=== PATIENT | male | born 1970 | race Caucasian/White ===

== ENCOUNTER 2016-10-22 03:36 | Emergency (ER) | payer SELFPAY ==
[~2016-10-22] VITALS: Ht 190.5 cm; Wt 92.7 kg
[2016-10-22 03:37] VITALS: BP 143/83
== END 2016-10-22 05:09 | disposition home or self-care (01) ==
LOC: ED 05:03
DX: S60.221A Contusion of right hand, initial encounter (principal); I10 Essential (primary) hypertension; F17.200 Nicotine dependence, unspecified, uncomplicated; W20.8XXA Other cause of strike by thrown, projected or falling object, initial encounter; Y93.89 Activity, other specified; Y92.89 Other specified places as the place of occurrence of the external cause; Y99.8 Other external cause status
CPT/HCPCS: 99284

== ENCOUNTER 2017-09-30 14:59 | Inpatient (IN) | payer MEDICAID ==
[~2017-09-30] VITALS: Ht 190.5 cm; Wt 80.9 kg
[2017-09-30 17:27] LABS: BASOPHILS # (AUTO) 0.01 x10^3/uL (0-0.1); BASOPHILS % (AUTO) 0 % (0-1); EOSINOPHILS # (AUTO) 0.06 x10^3/uL (0-0.4); EOSINOPHILS % (AUTO) 1 % (1-7); LYMPHOCYTES # (AUTO) 1.76 x10^3/uL (1-3.4); LYMPHOCYTES % (AUTO) 25 % (22-44); MD NO; MEAN CORPUSCULAR HEMOGLOBIN 30.5 pg (27.5-34.5); MEAN CORPUSCULAR HGB CONC 33.7 g/dL (33.2-36.2); MEAN CORPUSCULAR VOLUME 90.4 fL (81-97); MEAN PLATELET VOLUME 10.4 fL (7.4-10.4); MONOCYTES # (AUTO) 0.78 x10^3/uL (0.2-0.8); MONOCYTES % (AUTO) 11 % (2-9); NEUTROPHILS # (AUTO) 4.44 x10^3/uL (1.8-6.8); NEUTROPHILS % (AUTO) 63 % (42-75); PLATELET COUNT 190 x10^3/uL (130-400); RED BLOOD COUNT 4.19 x10^6/uL (4.38-5.82); RED CELL DISTRIBUTION WIDTH 13.3 % (9.4-14.8)
[2017-09-30 17:36] LABS: ANION GAP 8 mmol/L (5-15); CALCIUM 8.9 mg/dL (8.5-10.1); CHLORIDE 111 mmol/L (98-107); CREATININE 0.77 mg/dL (0.7-1.3)
[2017-09-30 17:52] LABS: INTERNATIONAL NORMALIZED RATIO 1.03 (0.93-1.1); PROTHROMBIN TIME 10.6 Seconds (9.6-11.5)
[2017-09-30] MEDS ORDERED: FAMO40OR2 PO (19:20)
[2017-09-30] MEDS ORDERED: ACETAMINOPHEN 325 MG TABLET PO PRN (20:00)
[2017-09-30] MEDS ORDERED: ONDANSETRON ODT 4 MG PO PRN (20:00)
[2017-09-30] MEDS ORDERED: HEPARIN 5,000 UNITS/ML, 1ML IV ONE (20:30)
[2017-09-30 21:00] VITALS: BP 104/66
[2017-09-30] MEDS: SODIUM CHLORIDE 0.9% 1,000 ML IV SCH (23:14)
[2017-09-30] MEDS: HEPARIN 25,000 UNITS/500ML PMX 500 ML IV PRN (23:44)
[2017-10-01 00:40] VITALS: BP 96/58
[2017-10-01 02:20] VITALS: BP 102/66
[2017-10-01] MEDS: SODIUM CHLORIDE 0.9% 1,000 ML IV SCH ×3 (03:48→20:54)
[2017-10-01 05:39] LABS: BASOPHILS # (AUTO) 0.03 x10^3/uL (0-0.1); BASOPHILS % (AUTO) 1 % (0-1); EOSINOPHILS # (AUTO) 0.19 x10^3/uL (0-0.4); EOSINOPHILS % (AUTO) 3 % (1-7); LYMPHOCYTES # (AUTO) 2.23 x10^3/uL (1-3.4); LYMPHOCYTES % (AUTO) 36 % (22-44); MD NO; MEAN CORPUSCULAR HEMOGLOBIN 30.7 pg (27.5-34.5); MEAN CORPUSCULAR HGB CONC 33.7 g/dL (33.2-36.2); MEAN CORPUSCULAR VOLUME 91.2 fL (81-97); MEAN PLATELET VOLUME 10.4 fL (7.4-10.4); MONOCYTES # (AUTO) 0.67 x10^3/uL (0.2-0.8); MONOCYTES % (AUTO) 11 % (2-9); NEUTROPHILS # (AUTO) 3.01 x10^3/uL (1.8-6.8); NEUTROPHILS % (AUTO) 49 % (42-75); PLATELET COUNT 195 x10^3/uL (130-400); RED CELL DISTRIBUTION WIDTH 13.2 % (9.4-14.8)
[2017-10-01 05:55] LABS: CHLORIDE 108 mmol/L (98-107)
[2017-10-01 06:18] LABS: ALANINE AMINOTRANSFERASE 38 U/L (12-78); ALBUMIN 2.9 g/dL (3.4-5.0); ALKALINE PHOSPHATASE 72 U/L (45-117); ANION GAP 8 mmol/L (5-15); BILIRUBIN,TOTAL 0.4 mg/dL (0.2-1.0); CALCIUM 8.3 mg/dL (8.5-10.1); CREATININE 0.72 mg/dL (0.7-1.3); TOTAL PROTEIN 5.8 g/dL (6.4-8.2)
[2017-10-01] MEDS: HEPARIN 5,000 UNITS/ML, 1ML IV PRN ×3 (06:26→18:38)
[2017-10-01 07:54] VITALS: BP 91/58
[2017-10-01] MEDS: PANTOPROZOLE 40MG TABLET PO SCH (08:52)
[2017-10-01 11:51] LABS: INTERNATIONAL NORMALIZED RATIO 0.98 (0.93-1.1); PROTHROMBIN TIME 10.1 Seconds (9.6-11.5)
[2017-10-01] MEDS: WARFARIN HIGH DOSE PROTOCOL XX SCH (12:00)
[2017-10-01 15:18] VITALS: BP 102/64
[2017-10-01] MEDS ORDERED: WARFARIN 10 MG TABLET PO-COUM ONE (18:00)
[2017-10-01] MEDS: HEPARIN 25,000 UNITS/500ML PMX 500 ML IV PRN (21:35)
[2017-10-01 21:47] VITALS: BP 101/64
[2017-10-02] MEDS: HEPARIN 5,000 UNITS/ML, 1ML IV PRN ×2 (01:06→13:28)
[2017-10-02 02:21] VITALS: BP 87/53
[2017-10-02 03:08] VITALS: BP 94/59
[2017-10-02] MEDS: SODIUM CHLORIDE 0.9% 1,000 ML IV SCH ×3 (03:48→19:48)
[2017-10-02 06:54] VITALS: BP 104/68
[2017-10-02 07:09] LABS: INTERNATIONAL NORMALIZED RATIO 1.06 (0.93-1.1); PROTHROMBIN TIME 10.9 Seconds (9.6-11.5)
[2017-10-02] MEDS: PANTOPROZOLE 40MG TABLET PO SCH (07:11)
[2017-10-02] MEDS ORDERED: KETOROLAC 30 MG/1 ML IM PRN (09:00)
[2017-10-02] MEDS: WARFARIN HIGH DOSE PROTOCOL XX SCH (11:41)
[2017-10-02] MEDS: HEPARIN 25,000 UNITS/500ML PMX 500 ML IV PRN (14:01)
[2017-10-02 14:47] VITALS: BP 96/67
[2017-10-02] MEDS ORDERED: WARFARIN 7.5 MG TABLET PO-COUM SCH (18:00)
[2017-10-02 19:45] VITALS: BP 98/61
[2017-10-03 01:27] LABS: BASOPHILS # (AUTO) 0.03 x10^3/uL (0-0.1); BASOPHILS % (AUTO) 1 % (0-1); EOSINOPHILS # (AUTO) 0.22 x10^3/uL (0-0.4); EOSINOPHILS % (AUTO) 4 % (1-7); LYMPHOCYTES % (AUTO) 42 % (22-44); MD NO; MEAN CORPUSCULAR HEMOGLOBIN 30.5 pg (27.5-34.5); MEAN CORPUSCULAR HGB CONC 33.7 g/dL (33.2-36.2); MEAN CORPUSCULAR VOLUME 90.5 fL (81-97); MEAN PLATELET VOLUME 10.4 fL (7.4-10.4); MONOCYTES # (AUTO) 0.48 x10^3/uL (0.2-0.8); MONOCYTES % (AUTO) 9 % (2-9); NEUTROPHILS # (AUTO) 2.47 x10^3/uL (1.8-6.8); NEUTROPHILS % (AUTO) 45 % (42-75); PLATELET COUNT 201 x10^3/uL (130-400); RED BLOOD COUNT 4.29 x10^6/uL (4.38-5.82); RED CELL DISTRIBUTION WIDTH 13.2 % (9.4-14.8)
[2017-10-03 01:30] LABS: INTERNATIONAL NORMALIZED RATIO 1.68 (0.93-1.1); PROTHROMBIN TIME 17.1 Seconds (9.6-11.5)
[2017-10-03 01:34] LABS: ANION GAP 6 mmol/L (5-15); CALCIUM 8.5 mg/dL (8.5-10.1); CHLORIDE 110 mmol/L (98-107)
[2017-10-03 03:44] VITALS: BP 116/64
[2017-10-03] MEDS: SODIUM CHLORIDE 0.9% 1,000 ML IV SCH ×3 (03:48→18:27)
[2017-10-03] MEDS: HEPARIN 25,000 UNITS/500ML PMX 500 ML IV PRN ×2 (05:56→22:41)
[2017-10-03 08:02] VITALS: BP 94/61
[2017-10-03] MEDS: PANTOPROZOLE 40MG TABLET PO SCH (09:07)
[2017-10-03] MEDS: WARFARIN HIGH DOSE PROTOCOL XX SCH (11:32)
[2017-10-03 14:07] VITALS: BP 120/78
[2017-10-03] MEDS ORDERED: WARFARIN 5 MG TABLET PO-COUM ONE (18:00)
[2017-10-03 19:44] VITALS: BP 113/70
[2017-10-04 01:44] VITALS: BP 109/68
[2017-10-04] MEDS: SODIUM CHLORIDE 0.9% 1,000 ML IV SCH ×2 (03:48→11:48)
[2017-10-04 07:12] VITALS: BP 100/72
[2017-10-04 07:32] LABS: INTERNATIONAL NORMALIZED RATIO 3.61 (0.93-1.1); PROTHROMBIN TIME 36.3 Seconds (9.6-11.5)
[2017-10-04] MEDS ORDERED: HOLD COUMADIN MC PRN (08:30)
[2017-10-04] MEDS: PANTOPROZOLE 40MG TABLET PO SCH (09:44)
[2017-10-04] MEDS: WARFARIN HIGH DOSE PROTOCOL XX SCH (12:00)
== END 2017-10-04 14:28 | disposition home or self-care (01) | DRG 301 ==
LOC: SUATTDRO 19:32 → ED 20:32 → EDIP 20:35 → 3NE 20:55
PROVIDERS: ADMIT Hospitalist; ATTEND Hospitalist
DX: I82.432 Acute embolism and thrombosis of left popliteal vein (principal); B18.2 Chronic viral hepatitis C; F15.10 Other stimulant abuse, uncomplicated; I10 Essential (primary) hypertension; F17.200 Nicotine dependence, unspecified, uncomplicated; M25.572 Pain in left ankle and joints of left foot; K27.9 Peptic ulcer, site unspecified, unspecified as acute or chronic, without hemorrhage or perforation; K22.2 Esophageal obstruction; Z82.49 Family history of ischemic heart disease and other diseases of the circulatory system; Z86.718 Personal history of other venous thrombosis and embolism; Z59.0 Homelessness; Z87.11 Personal history of peptic ulcer disease; Z79.01 Long term (current) use of anticoagulants; Z88.6 Allergy status to analgesic agent
CPT/HCPCS: 36415; 74220; 80048; 80053; 83735; 84100; 85025; 85520; 85610; 85730; 93970; 99285; J1644; Q0162; J7030

== ENCOUNTER 2019-07-12 16:15 | Emergency (ER) | payer MEDICAID, OTHER ==
[~2019-07-12] VITALS: Ht 190.5 cm; Wt 89.2 kg
[~2019-07-12 16:15] MED LIST: FAMO40OR2 PO; PANT40TA5 PO; SUCR1ORA5 PO
--- NOTE | 2019-07-12 16:53 | NUR ---
WIRE FENCE ERECTOR: PT TO ROOM FROM LOBBY VIA W/C
[2019-07-12] MEDS ORDERED: LORazepam 2 MG/ML, 1ML IVPush ONE (18:00)
[2019-07-12] MEDS ORDERED: LORazepam 2 MG/ML, 1ML ONE (18:23)
[2019-07-12] MEDS ORDERED: ONDANSETRON 2MG/ML, 2ML ONE (18:23)
[2019-07-12 18:27] LABS: BASOPHILS # (AUTO) 0.08 x10^3/uL (0-0.1); BASOPHILS % (AUTO) 1 % (0-1); EOSINOPHILS % (AUTO) 0 % (1-7); LYMPHOCYTES # (AUTO) 1.43 x10^3/uL (1-3.4); LYMPHOCYTES % (AUTO) 16 % (22-44); MD NO; MEAN CORPUSCULAR HEMOGLOBIN 29.5 pg (27.5-34.5); MEAN CORPUSCULAR HGB CONC 33.2 g/dL (33.2-36.2); MEAN CORPUSCULAR VOLUME 88.7 fL (81-97); MEAN PLATELET VOLUME 9.5 fL (7.4-10.4); MONOCYTES % (AUTO) 12 % (2-9); NEUTROPHILS # (AUTO) 6.55 x10^3/uL (1.8-6.8); NEUTROPHILS % (AUTO) 72 % (42-75); PLATELET COUNT 258 x10^3/uL (130-400); RED BLOOD COUNT 4.62 x10^6/uL (4.38-5.82); RED CELL DISTRIBUTION WIDTH 14.1 % (9.4-14.8)
[2019-07-12] MEDS ORDERED: ONDANSETRON 2MG/ML, 2ML IVPush ONE (18:30)
[2019-07-12] MEDS ORDERED: MORPHINE SULFATE 4 MG/ML, 1ML IVPush PRN (18:30)
[2019-07-12 18:33] LABS: ALANINE AMINOTRANSFERASE 122 U/L (12-78); ANION GAP 13 mmol/L (5-15); CALCIUM 8.9 mg/dL (8.5-10.1); CHLORIDE 113 mmol/L (98-107); CREATININE 1.18 mg/dL (0.7-1.3)
--- NOTE | 2019-07-12 18:33 | NUR ---
PT IS NOT ABLE TO HOLD STILL IN BED. VS STABLE. CHECKERER HAND ON. NSR NOTED. CALL LIGHT IN PLACE. WILL CONTINUE TO MONITOR.
--- NOTE | 2019-07-12 18:35 | NUR ---
DR HARMAN HAS UPDATED PATIENT. PATIENT C/O NECK PAIN AND CENTER BACK PAIN. PT TO GET A CT.
[2019-07-12 18:38] LABS: ALKALINE PHOSPHATASE 60 U/L (45-117); BILIRUBIN,TOTAL 1.6 mg/dL (0.2-1.0); TOTAL PROTEIN 7.5 g/dL (6.4-8.2); TROPONIN I < 0.015 ng/mL (0.000-0.045)
--- NOTE | 2019-07-12 19:01 | NUR ---
REPORT RECEIVED FROM MACKENZIE BRANHAM. PT ON ALL MONITORING, CALL LIGHT WITHIN REACH, ALL SAFETY MEASURES IN PLACE. PT DENIES NEEDS AT THIS TIME.
--- NOTE | 2019-07-12 19:03 | NUR ---
PT TO IMAGING AT THIS TIME.
[2019-07-12] MEDS ORDERED: OMNIPAQUE 350 MG/ML, 100ML BOTTLE ONE (19:30)
[2019-07-12 19:41] VITALS: BP 112/63
--- NOTE | 2019-07-12 19:42 | NUR ---
PT SITTING ON GURTORREY. MONITORING IN PLACE, CALL LIGHT WITHIN REACH.
== END 2019-07-12 21:20 | disposition home or self-care (01) ==
LOC: ED 17:04
DX: S16.1XXA Strain of muscle, fascia and tendon at neck level, initial encounter (principal); F15.10 Other stimulant abuse, uncomplicated; B19.10 Unspecified viral hepatitis B without hepatic coma; I10 Essential (primary) hypertension; X58.XXXA Exposure to other specified factors, initial encounter; Y93.89 Activity, other specified; Y92.89 Other specified places as the place of occurrence of the external cause; Y99.8 Other external cause status
CPT/HCPCS: 36415; 71045; 71275; 74175; 80053; 83690; 84484; 85025; 93005; 96374; 96375; 99285; J2060; J2405; Q9967

== ENCOUNTER 2019-10-12 19:51 | Emergency (ER) | payer MEDICAID ==
[~2019-10-12] VITALS: Ht 190.5 cm; Wt 75.4 kg
--- NOTE | 2019-10-12 20:36 | NUR ---
industrial hygiene manager attempted to draw blood 2x and pt requested that she removed the needle each time before blood draw was complete.
--- NOTE | 2019-10-12 22:23 | NUR ---
NO ANSWER,NEXT PT ROOMED
[2019-10-12 23:05] LABS: BASOPHILS # (AUTO) 0.03 x10^3/uL (0-0.1); BASOPHILS % (AUTO) 0 % (0-1); EOSINOPHILS # (AUTO) 0.11 x10^3/uL (0-0.4); EOSINOPHILS % (AUTO) 1 % (1-7); LYMPHOCYTES # (AUTO) 2.23 x10^3/uL (1-3.4); LYMPHOCYTES % (AUTO) 28 % (22-44); MD NO; MEAN CORPUSCULAR HEMOGLOBIN 28.2 pg (27.5-34.5); MEAN CORPUSCULAR HGB CONC 32.7 g/dL (33.2-36.2); MEAN CORPUSCULAR VOLUME 86.3 fL (81-97); MEAN PLATELET VOLUME 8.9 fL (7.4-10.4); MONOCYTES # (AUTO) 0.58 x10^3/uL (0.2-0.8); MONOCYTES % (AUTO) 7 % (2-9); NEUTROPHILS # (AUTO) 5.08 x10^3/uL (1.8-6.8); NEUTROPHILS % (AUTO) 63 % (42-75); PLATELET COUNT 254 x10^3/uL (130-400); RED BLOOD COUNT 5.53 x10^6/uL (4.38-5.82); RED CELL DISTRIBUTION WIDTH 14.7 % (9.4-14.8)
--- NOTE | 2019-10-12 23:05 | NUR ---
PT FROM LOBBY TO ROOM AT THIS TIME
[2019-10-12 23:17] LABS: ANION GAP 6 mmol/L (5-15); CHLORIDE 107 mmol/L (98-107); CREATININE 0.72 mg/dL (0.7-1.3)
[2019-10-13 00:14] VITALS: BP 117/62
== END 2019-10-13 00:18 | disposition home or self-care (01) ==
LOC: ED 23:28
DX: R13.14 Dysphagia, pharyngoesophageal phase (principal); K22.2 Esophageal obstruction; I10 Essential (primary) hypertension; Z86.718 Personal history of other venous thrombosis and embolism; F17.200 Nicotine dependence, unspecified, uncomplicated
CPT/HCPCS: 36415; 71046; 74220; 80048; 85025; 99284

== ENCOUNTER 2020-01-28 18:47 | Inpatient (IN) | payer MEDICAID ==
[~2020-01-28] VITALS: Ht 190.5 cm; Wt 68.2 kg
[~2020-01-28 18:47] MED LIST changes: -PANT40TA5 PO; +PANT40TA6 PO
[2020-01-28 19:30] LABS: BASOPHILS % (AUTO) 1 % (0-1); EOSINOPHILS % (AUTO) 0 % (1-7); LYMPHOCYTES % (AUTO) 11 % (22-44); MEAN CORPUSCULAR HEMOGLOBIN 29.1 pg (27.5-34.5); MEAN CORPUSCULAR HGB CONC 32.7 g/dL (33.2-36.2); MEAN PLATELET VOLUME 9.2 fL (7.4-10.4); MONOCYTES % (AUTO) 6 % (2-9); NEUTROPHILS % (AUTO) 82 % (42-75); PLATELET COUNT 304 x10^3/uL (130-400); RED BLOOD COUNT 4.83 x10^6/uL (4.38-5.82); RED CELL DISTRIBUTION WIDTH 13.8 % (9.4-14.8)
[2020-01-28] MEDS ORDERED: ONDANSETRON 2MG/ML, 2ML IVPush ONE (19:30)
[2020-01-28] MEDS ORDERED: FAMOTIDINE 20 MG/2 ML IVPush ONE (19:30)
[2020-01-28] MEDS ORDERED: SODIUM CHLORIDE FLUSH 10ML SYR IVF ONE (19:30)
[2020-01-28] MEDS ORDERED: PANTOPRAZOLE 40 MG IV IVPush SCH (19:30)
[2020-01-28] MEDS ORDERED: SODIUM CHLORIDE 0.9% 1,000ML IVBOLUS ONE ×2 (19:30→22:00)
[2020-01-28] MEDS ORDERED: ONDANSETRON 2MG/ML, 2ML ONE (19:36)
[2020-01-28] MEDS ORDERED: PANTOPRAZOLE 40 MG IV ONE (19:36)
[2020-01-28] MEDS ORDERED: FAMOTIDINE 20 MG/2 ML ONE (19:36)
[2020-01-28 19:39] LABS: ALANINE AMINOTRANSFERASE 25 U/L (12-78); ALBUMIN 3.1 g/dL (3.4-5.0); ANION GAP 5 mmol/L (5-15); CALCIUM 9.5 mg/dL (8.5-10.1); CHLORIDE 104 mmol/L (98-107); CREATININE 1.08 mg/dL (0.7-1.3)
[2020-01-28 19:41] LABS: ALKALINE PHOSPHATASE 47 U/L (45-117); BILIRUBIN,TOTAL 0.8 mg/dL (0.2-1.0); TOTAL PROTEIN 6.2 g/dL (6.4-8.2)
[2020-01-28 19:58] LABS: MD SCAN
--- NOTE | 2020-01-28 20:00 | NUR ---
LATE ENTRY SUMMARY NOTE: THIS PT PRESENTS TO THE ER FROM [place] [employer] [facility]. HE IS A POOR HISTORIAN. STATES HE INJURED HIS ESOPHOGUS APPROX 2 YEARS AGO AND IS SUPPOSED TO HAVE IT STRETCHED REGULARLY BUT HAS NOT BEEN COMPLAINT. PT IMMEDIATELY PLACED ON CARDIAC, BP AND O2 MONITORS. PT HAS BEEN SLEEPING, RESPIRATIONS EVEN AND UNLABORED. PT USED URINAL TO VOID. BEDRAILS UP X2, CALL LIGHT IN REACH.
--- NOTE | 2020-01-28 21:17 | NUR ---
PT REMAINS SLEEPING, RESPIRATIONS EVEN AND UNLABORED. NO COMPLAINTS OF NAUSEA SINCE IN THIS RN'S CARE. NO EMISIS.
[2020-01-28] MEDS: SODIUM CHLORIDE 0.9% 1,000 ML IV SCH (22:00)
[2020-01-28] MEDS ORDERED: LABETALOL 5MG/ML, 20ML IVPush PRN (22:00)
[2020-01-28] MEDS ORDERED: NICOTINE 14MG/24 HR PATCH.TD24 TD ONE (22:00)
[2020-01-28] MEDS ORDERED: PANTOPRAZOLE 80 MG in SODIUM CHLORIDE 0.9% 100 ML IV SCH (22:00)
[2020-01-28] MEDS ORDERED: ONDANSETRON 2MG/ML, 2ML IVPush PRN (22:00)
[2020-01-28] MEDS ORDERED: morphine SULFATE 10 MG/ML, 1ML IVPush PRN (22:00)
[2020-01-28 22:35] VITALS: BP 101/68
[2020-01-29 00:06] VITALS: BP 103/66
[2020-01-29 07:11] VITALS: BP 96/58
[2020-01-29 08:41] LABS: BASOPHILS % (AUTO) 1 % (0-1); EOSINOPHILS % (AUTO) 0 % (1-7); LYMPHOCYTES % (AUTO) 18 % (22-44); MEAN CORPUSCULAR HEMOGLOBIN 29.7 pg (27.5-34.5); MEAN CORPUSCULAR HGB CONC 33.2 g/dL (33.2-36.2); MEAN PLATELET VOLUME 8.7 fL (7.4-10.4); MONOCYTES % (AUTO) 7 % (2-9); NEUTROPHILS % (AUTO) 74 % (42-75); PLATELET COUNT 253 x10^3/uL (130-400); RED BLOOD COUNT 3.96 x10^6/uL (4.38-5.82); RED CELL DISTRIBUTION WIDTH 13.5 % (9.4-14.8)
[2020-01-29 08:48] LABS: ANION GAP 4 mmol/L (5-15); CALCIUM 8.8 mg/dL (8.5-10.1); CHLORIDE 112 mmol/L (98-107); CREATININE 0.78 mg/dL (0.7-1.3)
[2020-01-29 08:50] LABS: MD NO
[2020-01-29] MEDS ORDERED: PROPOFOL 10 MG/ML, 100ML IV ONE (09:42)
[2020-01-29] MEDS ORDERED: CHLORHEXIDINE 15 ML UDC ONE (09:46)
[2020-01-29] MEDS ORDERED: MEPERIDINE/PF 25MG/0.5ML IVPush PRN (10:30)
[2020-01-29] MEDS ORDERED: DIPHENHYDRAMINE 50 MG/ML, 1ML IVPush PRN (10:30)
[2020-01-29] MEDS ORDERED: PROMETHAZINE 12.5 MG SUPP PR PRN (10:30)
[2020-01-29] MEDS ORDERED: HYDROmorphone 1 MG/ML, 1ML INJ IVPush PRN (10:30)
[2020-01-29] MEDS ORDERED: MIDAZOLAM 1 MG/ML, 2ML IV PRN (10:30)
[2020-01-29] MEDS ORDERED: EPHEDRINE 50 MG/ML, 1ML IVPush PRN (10:30)
[2020-01-29] MEDS ORDERED: OXYcodone 5 MG/5 ML ORAL.SOL UDC PO PRN (10:30)
[2020-01-29] MEDS ORDERED: LABETALOL 5MG/ML, 20ML IV PRN (10:30)
[2020-01-29] MEDS ORDERED: FENTANYL PF 100 MCG/2ML IV PRN (10:30)
[2020-01-29] MEDS ORDERED: ONDANSETRON 2MG/ML, 2ML IVPush PRN (10:30)
[2020-01-29] MEDS ORDERED: DIAZEPAM 5 MG/ML, 2ML IVPush PRN (10:30)
[2020-01-29] MEDS ORDERED: PROMETHAZINE 25 MG/ML, 1ML IVPush PRN (10:30)
[2020-01-29] MEDS ORDERED: hydrALAzine 20 MG/ML, 1ML IV PRN (10:30)
[2020-01-29] MEDS ORDERED: ALBUTEROL SULFATE 2.5 MG/3 ML NPPB PRN (10:30)
[2020-01-29 11:09] VITALS: BP 106/71
[2020-01-29] MEDS: PANTOPRAZOLE 80 MG in SODIUM CHLORIDE 0.9% 100 ML IV SCH ×2 (11:12)
[2020-01-29] MEDS: SODIUM CHLORIDE 0.9% 1,000 ML IV SCH (11:13)
[2020-01-29 12:38] VITALS: BP 116/77
[2020-01-29] MEDS ORDERED: PANT40TA3 PO (12:43)
== END 2020-01-29 17:50 | disposition home or self-care (01) | DRG 382 ==
LOC: ED 21:25 → EDIP 22:43 → 4WST 23:15
PROVIDERS: ADMIT Family Medicine; ATTEND Hospitalist
PROC: 0DJ08ZZ Inspection of Upper Intestinal Tract, Via Natural or Artificial Opening Endoscopic (ICD-10-PCS; principal; 2020-01-29 13:00)
DX: K22.11 Ulcer of esophagus with bleeding (principal); B18.2 Chronic viral hepatitis C; D72.829 Elevated white blood cell count, unspecified; E86.0 Dehydration; F10.10 Alcohol abuse, uncomplicated; K21.9 Gastro-esophageal reflux disease without esophagitis; K22.2 Esophageal obstruction; K44.9 Diaphragmatic hernia without obstruction or gangrene; R13.14 Dysphagia, pharyngoesophageal phase; Z20.828 Contact with and (suspected) exposure to other viral communicable diseases; Z59.9 Problem related to housing and economic circumstances, unspecified; Z87.11 Personal history of peptic ulcer disease; Z91.14 Patient's other noncompliance with medication regimen; Z88.5 Allergy status to narcotic agent; Z88.8 Allergy status to other drugs, medicaments and biological substances; Z71.6 Tobacco abuse counseling; Z72.0 Tobacco use
CPT/HCPCS: 36415; J3490; 71045; 80048; 80053; 83690; 85025; 87635; G0378; J2405; J2704; C9113; J7030

== ENCOUNTER 2021-01-03 14:07 | Emergency (ER) | payer MEDICAID, OTHER ==
[~2021-01-03] VITALS: Ht 190.5 cm; Wt 68.0 kg
[~2021-01-03 14:07] MED LIST changes: +PANT40TA3 PO
[2021-01-03] MEDS ORDERED: D5%-0.45% NACL 1,000 ML IV ONE (14:31)
--- NOTE | 2021-01-03 14:33 | NUR ---
PT BIB EMS FROM [facility] FOR FOOD DISLODGED IN ESOPHAGUS. 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 ON A LIQUID FOOD DIET, STATES A POTATOE GOT STUCK AND HAS NOT DISLODGED. PT NOT IN DISTRESS, AIRWAY CLEAR. RESTING COMFORTABLE IN ROOM. SEEN BY MD. PT TO BE CONSULTED BY GI
[2021-01-03] MEDS ORDERED: SODIUM CHLORIDE FLUSH 10ML SYR IVF ONE (15:00)
[2021-01-03] MEDS ORDERED: PROPOFOL 10 MG/ML, 20ML IVPush ONE (15:30)
[2021-01-03] MEDS ORDERED: PROPOFOL 10 MG/ML, 20ML ONE ×2 (15:31→15:38)
--- NOTE | 2021-01-03 16:00 | NUR ---
PT TOLERATED EGD WELL. FOOD PUSHED DOWN. ESOPHAGUS ALSO DILATED. PT REQUIRED 180 MG PROPOFOL. ADMIN BY MD DIXON. ALL VSS STABLE DURING PROCEDURE. SUCTIONED NEEDED.
--- NOTE | 2021-01-03 16:42 | NUR ---
PT AWAKE, ALERT, DENIES PAIN OR NAUSEA. READY FOR DC PLANNED. EDUCATED ABOUT PROCEDURE. NEEDS TO TAKE PPI IN INTERMEDIATE
[2021-01-03 16:43] VITALS: BP 121/68
== END 2021-01-03 18:37 | disposition home or self-care (01) ==
LOC: ED 14:30
DX: T18.128A Food in esophagus causing other injury, initial encounter (principal); I10 Essential (primary) hypertension; Z86.718 Personal history of other venous thrombosis and embolism; X58.XXXA Exposure to other specified factors, initial encounter; Y93.89 Activity, other specified; Y92.89 Other specified places as the place of occurrence of the external cause; Y99.8 Other external cause status
CPT/HCPCS: 43247; 99152; 99285; C1725